=== PATIENT | male | born 1970 | race Caucasian/White ===

== ENCOUNTER 2021-02-10 16:34 | Emergency (ER) | payer BC ==
[2021-02-10 17:32] VITALS: RESP 18
[2021-02-10] MEDS ORDERED: KETOROLAC 15 MG/ML 1 ML VIAL IVP STA (17:44)
--- NOTE | 2021-02-10 17:55 | ED ---
Back Pain HPI - General Chief Complaint: Back Pain/Injury Stated Complaint: Lt side pain Time Seen by Provider: 02/10/21 17:42 Source: patient, RN notes reviewed Limitations: no limitations - History of Present Illness Initial Comments: 50-year-old male with a benign history who woke up this way with some left-sided flank pain get worse around 11 or 12:00 this morning very sharp 8/10 severity radiating around to the left CVA area to the lower anterior abdomen. No hematuria fevers chills sweats some nausea reported. No prior history kidney stones. No trauma reported no other complaints or modifying factors MD Complaint: back pain - Related Data Home Medications Medication Instructions Recorded Confirmed Aspirin EC [Ecotrin Low Dose] 81 mg PO DAILY 02/10/21 02/10/21 Rosuvastatin Calcium [Crestor] 40 mg PO DAILY 02/10/21 02/10/21 Sildenafil Citrate [Viagra] 100 mg PO DAILY PRN 02/10/21 02/10/21 Ubidecarenone [Co Q-10] 100 mg PO DAILY 02/10/21 02/10/21 Allergies Allergy/AdvReac Type Severity Reaction Status Date / Time No Known Allergies Allergy Verified 02/10/21 18:39 Review of Systems ROS Statement: Those systems with pertinent positive or pertinent negative responses have been documented in the HPI. ROS Other: All systems not noted in ROS Statement are negative. Past Medical History Past Medical History: Myocardial Infarction ([place]) History of Any Multi-Drug Resistant Organisms: None Reported Past Surgical History: Heart Catheterization With Stent Past Psychological History: No Psychological Hx Reported Smoking Status: Never smoker Past Alcohol Use History: Occasional Past Drug Use History: None Reported General Exam - General Exam Comments Initial Comments: This is a well-developed well-nourished awake alert oriented times 3 male Limitations: no limitations General appearance: alert, anxious, in distress Head exam: Present: atraumatic, normocephalic, normal inspection Eye exam: Present: normal appearance, PERRL, EOMI. Absent: scleral icterus, conjunctival injection, periorbital swelling ENT exam: Present: normal exam, mucous membranes moist Neck exam: Present: normal inspection, full ROM. Absent: tenderness, meningismus, lymphadenopathy Respiratory exam: Present: normal lung sounds bilaterally. Absent: respiratory distress, wheezes, rales, rhonchi, stridor Cardiovascular Exam: Present: normal rhythm, bradycardia, normal heart sounds. Absent: systolic murmur, diastolic murmur, rubs, gallop, clicks GI/Abdominal exam: Present: soft, normal bowel sounds. Absent: distended, tend erness, guarding, rebound, rigid Rectal exam: Present: deferred Extremities exam: Present: normal inspection, full ROM, normal capillary refill. Absent: tenderness, pedal edema, joint swelling, calf tenderness Back exam: Present: normal inspection, CVA tenderness (L) (Left CVA tenderness, mild) Neurological exam: Present: alert, oriented X3, CN II-XII intact Psychiatric exam: Present: normal affect, normal mood Skin exam: Present: warm, dry, intact, normal color. Absent: rash Course Vital Signs 02/10/21 02/10/21 17:28 19:48 Temperature 98.1 F 97.9 F Pulse Rate 50 L 73 Respiratory 18 18 Rate Blood Pressure 149/82 114/79 O2 Sat by Pulse 100 95 Oximetry Medical Decision Making - Medical Decision Making Patient feels pain-free at this time we did a long discussion regarding the findings the presentation is consistent with a past kidney stone. CAT scan shows no evidence of any retained stone he has had hematuria on his UA. We a long discussion regarding the findings and need for oral hydration ibuprofen for pain when necessary. - Lab Data Result diagrams: 02/10/21 17:45 02/10/21 17:45 Lab Results 02/10/21 02/10/21 02/10/21 Range/Units 17:45 17:45 17:55 WBC 14.3 H (3.8-10.6) k/uL RBC 5.06 (4.30-5.90) m/uL Hgb 15.3 (13.0-17.5) gm/dL Hct 44.1 (39.0-53.0) % MCV 87.2 (80.0-100.0) fL MCH 30.3 (25.0-35.0) pg MCHC 34.7 (31.0-37.0) g/dL RDW 12.0 (11.5-15.5) % Plt Count 255 (150-450) k/uL MPV 6.7 Neutrophils % 85 % Lymphocytes % 11 % Monocytes % 4 % Eosinophils % 0 % Basophils % 0 % Neutrophils # 12.1 H (1.3-7.7) k/uL Lymphocytes # 1.6 (1.0-4.8) k/uL Monocytes # 0.5 (0-1.0) k/uL Eosinophils # 0.0 (0-0.7) k/uL Basophils # 0.0 (0-0.2) k/uL Sodium 142 (137-145) mmol/L Potassium 4.1 (3.5-5.1) mmol/L Chloride 105 (98-107) mmol/L Carbon Dioxide 23 (22-30) mmol/L Anion Gap 14 mmol/L BUN 19 (9-20) mg/dL Creatinine 1.11 (0.66-1.25) mg/dL Est GFR (CKD-EPI)AfAm >90 (>60 ml/min/1.73 sqM) Est GFR (CKD-EPI)NonAf 78 (>60 ml/min/1.73 sqM) Glucose 127 H (74-99) mg/dL Calcium 10.1 (8.4-10.2) mg/dL Total Bilirubin 1.5 H (0.2-1.3) mg/dL AST 35 (17-59) U/L ALT 35 (4-49) U/L Alkaline Phosphatase 64 (38-126) U/L Total Protein 7.8 (6.3-8.2) g/dL Albumin 5.0 (3.5-5.0) g/dL Urine Color Light [place] Urine Appearance Turbid (Clear) Urine pH 5.5 (5.0-8.0) Ur Specific [place] 1.033 (1.001-1.035) Urine Protein 2+ H (Negative) Urine Glucose (UA) Negative (Negative) Urine Ketones 1+ H (Negative) Urine Blood Large (Negative) Urine Nitrite Negative (Negative) Urine Bilirubin Negative (Negative) Urine Urobilinogen 2.0 (<2.0) mg/dL Ur Leukocyte Esterase Negative (Negative) Urine RBC QNS Urine Red Cell Clumps QNS Urine WBC QNS Urine WBC Clumps QNS Ur Squamous Epith Cells QNS Ur Transition Epith Cell QNS Ur Renal Epithelial Cell QNS Calcium Carbonate Cryst QNS Calcium Phosphate Cryst QNS Calcium Oxalate Crystal QNS Leucine Crystals QNS Cystine Crystals QNS Uric Acid Crystals QNS Triple Phos Crystals QNS Tyrosine Crystals QNS Other Crystals QNS Amorphous Sediment QNS Urine Bacteria QNS Cellular Casts QNS Epithelial Casts QNS Fatty Casts QNS Hyaline Casts QNS Granular Casts QNS Waxy Casts QNS Broad Casts QNS RBC Casts QNS WBC Casts QNS Other Casts QNS Urine Mucus QNS Urine Trichomonas QNS Ur Yeast w Hyphae QNS Urine Yeast (Budding) QNS Ur Oval Fat Bodies QNS - Radiology Data Radiology results: report reviewed (Image reviewed as well as report KUB is nonspecific CAT scan shows no evidence of hydronephrosis hydroureter or stone at this time.), image reviewed Disposition Clinical Impression: Kidney stone on left side, Hematuria, Renal colic on left side Disposition: HOME SELF-CARE Condition: Good Instructions (If sedation given, give patient instructions): Flank Pain (ED), Renal Colic (ED), Kidney Stones (ED) Additional Instructions: Adequate fluid intake, ibuprofen for pain when necessary Is patient prescribed a controlled substance at d/c from ED?: No Referrals: Cash Morrison MD [Primary Care Provider] - 1-2 days
[2021-02-10 18:19] LABS: Basophils % (A) 0 %; Eosinophils % (A) 0 %; HCT 44.1 % (39.0-53.0); HGB 15.3 gm/dL (13.0-17.5); Lymphocytes # (A) 1.6 k/uL (1.0-4.8); Lymphocytes % (A) 11 %; MCH 30.3 pg (25.0-35.0); MCHC 34.7 g/dL (31.0-37.0); MCV 87.2 fL (80.0-100.0); Mean Platelet Volume 6.7; Monocytes # (A) 0.5 k/uL (0-1.0); Monocytes % (A) 4 %; Neutrophils # (A) 12.1 k/uL (1.3-7.7); Neutrophils % (A) 85 %; Platelet Count 255 k/uL (150-450); RBC 5.06 m/uL (4.30-5.90); WBC 14.3 k/uL (3.8-10.6)
[2021-02-10 18:26] LABS: Appearance,Urine Turbid (Clear); Color,Urine Light Orange; PH, Urine 5.5 (5.0-8.0); Specific Gravity,Urine 1.033 (1.001-1.035)
[2021-02-10 18:27] LABS: Bilirubin,Urine Negative (Negative); Blood,Urine Large (Negative); Glucose,Urine (UA) Negative (Negative); Ketones,Urine 1+ (Negative); Nitrite,Urine Negative (Negative); Protein,Urine 2+ (Negative)
[2021-02-10 18:28] LABS: Amorphous Sediment,Urine QNS /hpf; Bacteria,Urine QNS /hpf; Broad Casts,Urine QNS /lpf (0); Budding Yeast,Urine QNS /hpf; Calcium Carbonate Crystals,Ur QNS /hpf; Calcium Oxalate Crystals,Urine QNS /hpf; Calcium Phosphate Crystals,Ur QNS /hpf; Cellular Casts,Urine QNS /lpf (0); Cystine Crystals,Urine QNS /hpf (None Seen); Epithelial Cell Casts,Urine QNS /lpf (0); Fatty Casts,Urine QNS /lpf (0); Granular Casts,Urine QNS /lpf (0); Hyaline Casts,Urine QNS /lpf (0-2); Hyphae Yeast, Urine QNS /hpf; Leucine Crystal, Urine QNS /hpf; Leukocyte Esterase,Urine Negative (Negative); Mucus,Urine QNS /hpf; Other Casts,Urine QNS /lpf (0); Other Crystals,Urine QNS /hpf; RBC Clumps, Urine QNS /hpf; RBC,Urine QNS /hpf (0-5); Red Blood Cell Casts,Urine QNS /lpf (0); Renal Epithelial Cells,Urine QNS /hpf (0); Squamous Epithelial Cell,Urine QNS /hpf (0-4); Transitional Epi Cells,Urine QNS /hpf (0-1); Trichomonas,Urine QNS /hpf; Triple Phosphate Crystal,Urine QNS /hpf; Tyrosine Crystal,Urine QNS /hpf; Uric Acid Crystals,Urine QNS /hpf; WBC,Urine QNS /hpf (0-5); Waxy Casts,Urine QNS /lpf (0); White Blood Cell Casts,Urine QNS /lpf (0)
[2021-02-10 18:29] LABS: Oval Fat Bodies,Urine QNS /hpf; Sperm,Urine QNS /hpf
[2021-02-10 18:31] LABS: Chloride 105 mmol/L (98-107)
[2021-02-10 18:32] LABS: ALT 35 U/L (4-49); AST 35 U/L (17-59); African American GFR (CKD) >90 (>60 ml/min/1.73 sqM); Alkaline Phosphatase 64 U/L (38-126); Anion Gap 14 mmol/L; Blood Urea Nitrogen 19 mg/dL (9-20); Calcium 10.1 mg/dL (8.4-10.2); Carbon Dioxide 23 mmol/L (22-30); Glucose 127 mg/dL (74-99); Non-African American GFR(CKD) 78 (>60 ml/min/1.73 sqM); Potassium 4.1 mmol/L (3.5-5.1); Sodium 142 mmol/L (137-145); Total Bilirubin 1.5 mg/dL (0.2-1.3); Total Protein 7.8 g/dL (6.3-8.2)
--- NOTE | 2021-02-10 18:44 | XR ---
EXAMINATION TYPE: XR KUB DATE OF EXAM: 02/10/2021 COMPARISON: NONE HISTORY: Flank pain TECHNIQUE: 2 views upright FINDINGS: Bowel gas pattern is normal. There is no sign of intestinal obstruction or pneumoperitoneum . Fecal pattern is normal. There is no evidence of a mass. There are no pathologic calcifications ove r the kidneys. Lung bases are clear. IMPRESSION: Nonacute abdomen.
--- NOTE | 2021-02-10 19:48 | CT ---
EXAMINATION TYPE: CT abdomen pelvis wo con DATE OF EXAM: 02/10/2021 COMPARISON: None HISTORY: LT flank pain CT DLP: 616.6 mGycm Automated exposure control for dose reduction was used. Images obtained from the diaphragm to the floor the pelvis without contrast. Lung bases are clear. There is no pleural effusion. Heart size is normal. There is no pericardial eff usion. Liver spleen stomach pancreas gallbladder appear intact. The bile ducts are not dilated. There is no adrenal mass. Kidneys have normal size. There is no hydronephrosis. Ureters are not dilat ed. There is no retroperitoneal adenopathy. Appendix is posterior and appears normal. Bladder distend s smoothly. Prostate measures 5 cm. There is no inguinal hernia. There is no free fluid in the pelvis . There is no mesenteric edema. There is no ascites or free air. There is no bowel obstruction. The lum bar vertebra have fairly normal alignment. There is some narrowing of the disc spaces from L3 to S1. There is no compression fracture. The bony pelvis is intact. The hip joints are intact. IMPRESSION: Negative CT scan of the lumbar spine. No renal stone or obstruction. Normal appendix.
[2021-02-10 19:51] VITALS: BP 114/79; PULSE 73; TEMP 97.9
== END 2021-02-10 20:14 | disposition home or self-care (01) ==
LOC: EC 16:34
DX: N20.0 Calculus of kidney (principal); R31.9 Hematuria, unspecified; N23 Unspecified renal colic; I25.2 Old myocardial infarction; Z72.89 Other problems related to lifestyle
CPT/HCPCS: 36415; 80053; 85025; 81001; 74018; 74176; 99284; 96374; J1885